=== PATIENT | male | born 1970 | race Caucasian/White ===

== ENCOUNTER → 2024-02-19 | Outpatient (CLI) | payer OTHER ==
--- NOTE | 2024-02-19 13:12 | US ---
EXAMINATION TYPE: US liver DATE OF EXAM: 02/19/2024 COMPARISON: NONE CLINICAL INDICATION: Male, 53 years old with history of R94.5 ABNORMAL RESULTS OF LIVER; Elevated aftab er enzymes TECHNIQUE: Multiple sonographic images of the right upper quadrant are obtained. FINDINGS: EXAM MEASUREMENTS: Liver Length: 17.1 cm Gallbladder Wall: .3 cm CBD: .4 cm Right Kidney: 9.8 x 6.4 x 5.2 cm BINDER TECHNICIAN NOTES: Pancreas: Obscured by bowel gas Liver: Increased attenuation Gallbladder: No stones seen Evidence for sonographic Vitale's sign: No CBD: wnl Right Kidney: No hydronephrosis or masses seen The pancreas is obscured by overlying bowel gas. The liver demonstrates diffuse increased echogenicit y. This appearance limits evaluation for small uterine masses. No gross evidence of mass. Gallbladder is unremarkable without evidence cholelithiasis, wall thickening, or surrounding fluid. Negative son ographic Vitale sign. Common bile duct is within normal limits. Right kidney demonstrates no hydronep hrosis, nephrolithiasis, or masses. IMPRESSION: 1. No ultrasound evidence for an acute process. 2. Hepatic steatosis.
== END | disposition home or self-care (01) ==
LOC: RADUSWWP 07:03
PROVIDERS: ATTEND Family Medicine
DX: R94.5 Abnormal results of liver function studies
CPT/HCPCS: 76705